=== PATIENT | male | born 1985 | race African-American/Black ===

== ENCOUNTER 2021-02-07 00:50 | Emergency (ER) | payer BC ==
[~2021-02-07] VITALS: Ht 203.2 cm; Wt 90.7 kg
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
[2021-02-07] MEDS ORDERED: IBUPROFEN 400 MG TABLET ONE (01:08)
--- NOTE | 2021-02-07 01:12 | NUR ---
taken to radiology
--- NOTE | 2021-02-07 01:24 | NUR ---
BROUGHT BACK FROM CT
[2021-02-07] MEDS ORDERED: IBUPROFEN 400 MG TABLET PO ONE (01:30)
--- NOTE | 2021-02-07 01:38 | NUR ---
XRAY AT BEDSIDE
--- NOTE | 2021-02-07 02:25 | NUR ---
Patient discharged to home in stable condition. Written and verbal after care instructions given. Patient verbalizes understanding of instruction. Pt ambulatory with a steady gait. Pt picked up by family member
[2021-02-07 02:30] VITALS: BP 155/71
== END 2021-02-07 02:25 | disposition home or self-care (01) ==
LOC: ER 00:57
DX: S09.8XXA Other specified injuries of head, initial encounter (principal); G40.909 Epilepsy, unspecified, not intractable, without status epilepticus; Z60.2 Problems related to living alone; V49.59XA Passenger injured in collision with other motor vehicles in traffic accident, initial encounter; Y93.89 Activity, other specified; Y92.413 State road as the place of occurrence of the external cause; Y99.8 Other external cause status
CPT/HCPCS: 70450-TC; 71045-TC